=== PATIENT | female | born 1960 | race Caucasian/White ===

== ENCOUNTER 2021-08-02 08:22 | Outpatient (CLI) | payer OTHER ==
[~2021-08-02 08:22] MED LIST: KETO10TA2 PO; ORPH100T PO
== END 2021-08-02 08:38 | disposition home or self-care (01) ==
LOC: SONOGRAMA 08:22
PROVIDERS: ATTEND General Practice
DX: R10.2 Pelvic and perineal pain (principal); R31.29 Other microscopic hematuria

== ENCOUNTER 2022-04-10 10:43 | Outpatient (CLI) | payer OTHER | END 2022-04-10 10:44 | disposition home or self-care (01) | LOC: LAB 10:43 | PROVIDERS: ATTEND Obstetrics & Gynecology | DX: N39.0 Urinary tract infection, site not specified (principal); E78.5 Hyperlipidemia, unspecified; E55.9 Vitamin D deficiency, unspecified; E16.2 Hypoglycemia, unspecified; E03.9 Hypothyroidism, unspecified; Z01.419 Encounter for gynecological examination (general) (routine) without abnormal findings ==

== ENCOUNTER 2022-04-22 16:05 | Outpatient (CLI) | payer OTHER | END 2022-04-22 16:16 | disposition home or self-care (01) | LOC: LAB 16:05 | DX: B34.9 Viral infection, unspecified (principal); R50.9 Fever, unspecified; Z20.822 Contact with and (suspected) exposure to COVID-19 ==

== ENCOUNTER 2025-08-22 10:02 | Outpatient (CLI) | payer OTHER | END 2025-08-22 10:12 | disposition home or self-care (01) | LOC: SONOGRAMA 10:02 | PROVIDERS: ATTEND Podiatrist Foot Surgery | DX: G57.62 Lesion of plantar nerve, left lower limb (principal) ==